=== PATIENT | female | born 1930 | race Caucasian/White ===

== ENCOUNTER → 2017-06-29 | Outpatient (CLI) | payer OTHER ==
[~2017-06-29] MED LIST: IOVERSOL 350 MG/ML 150 ML VIAL ONE
== END | disposition home or self-care (01) ==
LOC: RADMN 08:53
PROVIDERS: ATTEND Internal Medicine Geriatric Medicine
DX: J98.11 Atelectasis (principal); I51.7 Cardiomegaly; I70.0 Atherosclerosis of aorta; N28.1 Cyst of kidney, acquired; M48.55XA Collapsed vertebra, not elsewhere classified, thoracolumbar region, initial encounter for fracture; M51.34 Other intervertebral disc degeneration, thoracic region; R59.0 Localized enlarged lymph nodes
CPT/HCPCS: 71275; Q9967